=== PATIENT | female | born 2000 | race Caucasian/White ===

== ENCOUNTER 2020-07-05 08:14 | Outpatient (RCR) | payer MEDICAID, SELFPAY | END 2020-07-05 23:59 | LOC: IMMUN 08:14 | PROVIDERS: Visit Provider Family Medicine | DX: Z23 Encounter for immunization (principal) | CPT/HCPCS: 0011A; 0012A; 91301 ==

== ENCOUNTER 2021-01-07 01:05 | Emergency (ER) | payer MEDICAID, SELFPAY ==
[2021-01-07 01:07] VITALS: BP 137/80; PULSE 102; RESP 18; TEMP 36.4; O2SAT 100; BMI 39.9
[2021-01-07 01:11] VITALS: O2SAT 100
--- NOTE | 2021-01-07 01:24 | EKG12_ITS ---
Test Reason : DYSRHYTHMIA Blood Pressure : / mmHG Vent. Rate : 092 BPM Atrial Rate : 092 BPM P-R Int : 116 ms QRS Dur : 068 ms QT Int : 350 ms P-R-T Axes : 011 057 046 degrees QTc Int : 432 ms Normal sinus rhythm Normal ECG Confirmed by LUZMARIA OCONNOR, TIMMY ([id number]), editor map ADRIANA DUARTE ([id number]) on 01/08/2021 9:10:12 AM Referred By: MR Confirmed By:TIMMY DUTTA MD
--- NOTE | 2021-01-07 01:24 | RAD_ITS ---
STUDY: X-RAY CHEST REASON FOR EXAM: Female, 20 years old. Chest pain TECHNIQUE: PA and lateral views of the chest. COMPARISON: None. FINDINGS: The lungs are clear and expanded. There is no demonstrated pleural abnormality. Normal size heart. Normal mediastinum and drea. Normal visualized pulmonary arteries. Normal visualized aortic arch and descending thoracic aorta. Normal visualized thoracic spine. Normal visualized ribs, clavicles, and shoulders. There is no demonstrated abnormality of the visualized soft tissue structures of the upper abdomen. RAD/Chest PA and Lateral IMPRESSION: Normal x-ray examination of the chest. Electronically Signed: Karol Hamilton MD at 2:20 EDT Tel , Service support ,
--- NOTE | 2021-01-07 01:33 | ED.VIS.DYS ---
HPI History of Present Illness Chief Complaint: Shortness of Breath Narrative Narrative: Patient presenting for evaluation secondary to chest pain shortness of breath. Patient states that she has been dealing with somewhat of a respiratory illness over the course the last couple of days. She did test negative for coronavirus over the weekend. Patient reports that the night prior to going to bed she developed some chest pain shortness of breath. Some right-sided chest pain is worse with taking deep breath, as well as associated with shortness of breath. Patient denies that she currently has been dealing with any sort of fevers, she does have some mild rhinorrhea and a mild cough. She denies any nausea or vomiting or diarrhea. She denies any personal or family history of DVT or PE or any hemoptysis. Patient does use control and uses a vape device. Patient denies any cardiovascular risk factors. She initially thought that this was associated with her anxiety, but when it did not resolve she decided to come to the emergency department for further evaluation. [facility] Medical History Anxiety Depression Home Medications ibuprofen 200 mg tablet 200 mg PO Q6H PRN 01/05/21 [History Last Taken Unknown] norgestimate 0.25 mg-ethinyl estradiol 35 mcg tablet 1 tab PO DAILY 01/05/21 [History Last Taken Unknown] Allergy/AdvReac Type Severity Reaction Status Date / Time No Known Allergies Allergy Verified 01/07/21 01:11 Family History Other Cancer Heart disease Hypertension Social History Smoking Status: Current some day smoker tobacco type: e-cigarettes alcohol intake: never substance use type: does not use ROS ROS ED Constitutional Constitutional ED: Denies fever(s) Eyes Eyes: Denies change in vision ENT ENT ED: Denies rhinorrhea or sore throat Cardiovascular Cardiovascular: Reports chest pain Respiratory/Chest Respiratory/Chest: Reports dyspnea Gastrointestinal Gastrointestinal: Denies abdominal pain, nausea or vomiting Genitourinary Genitourinary ED: Denies dysuria Musculoskeletal Musculoskeletal: Denies myalgias or neck pain Integumentary Denies rash Neurologic Neurologic: Denies headache(s), paresthesias or weakness Psychiatric Psychiatric: Denies depression Endocrine Endocrinology: Denies polydipsia or polyuria Hematologic/Lymphatic Hematologic/Lymphatic: Denies easy bleeding or easy bruising Allergic/Immunologic Allergic/Immunologic ED: Denies urticaria EXAM Physical Exam Const Vital Signs: 01/07/21 01:07 01/07/21 01:11 01/07/21 01:35 Temperature 97.5 F L Temperature Source Temporal Pulse Rate 102 H Respiratory Rate 18 16 Respiratory Effort Normal Respiratory Pattern Normal Blood Pressure 137/80 H Blood Pressure Mean 99 Pulse Ox 100 100 Oxygen Delivery Method Room Air Room Air Room Air Positive well nourished and well developed General Appearance ED: well developed and NAD HEENT Reports moist mucous membranes normocephalic and atraumatic Eyes EOMs intact bilaterally Neck no lymphadenopathy, supple and no JVD Chest Wall inspection of chest normal and palpation of chest normal Resp normal respiratory effort and clear to auscultation bilaterally Resp Narrative: No evidence of vesicular rash on the chest, no reproducible tenderness to palpation Auscultation: Negative for rales, rhonchi or wheezes Cardio regular rhythm, S1 normal heart sound, S2 normal heart sound and no murmurs Rate: tachycardic Peripheral Pulses: radial pulses present and posterior tibial pulses present GI normal to inspection, nondistended, normoactive bowel sounds, soft to palpation and non-tender Extremity normal to inspection Extremity Narrative: Calves are supple no palpable cord General Extremety ED: Negative for edema or tenderness General Extremity: Negative for edema Neuro oriented x3 and no sensory deficits noted Sensorium / Orientation: awake and alert Psych mental status grossly normal Skin no rashes or lesions noted MDM MDM MDM Narrative Medical decision making narrative: Patient presented for evaluation secondary to chest pain. Patient does have risk factors for pulmonary embolism given the fact that she smokes and has a history of taking control IV was tablets laboratory studies were obtained. PA and lateral chest x-ray by my personal review is negative for acute process there is no evidence of infiltrate, no evidence of pneumothorax, normal cardiac silhouette. CBC demonstrates mild leukocytosis at 13,000 and no significant neutrophilic shift. Chemistry was unremarkable, troponin was negative and D-dimer was found to be negative. EKG was found to be unremarkable. Patient does have a history of a recent respiratory illness and has pain on inspiration this could be an element of some pleurisy. I do not feel that she is at risk for other serious etiology that requires admission or further observation at this time. She was recommended to use NSAIDs at home, she was given reassurance, the patient was discharged in stable condition. Lab Data Labs: Laboratory Results - last 24 hr 01/07/21 01/07/21 01/07/21 01:30 01:30 01:30 WBC 13.0 H RBC 4.30 Hgb 12.2 Hct 37.0 MCV 86.0 MCH 28.4 MCHC 33.0 RDW Std Deviation 37.2 RDW Coeff of Shruti 11.8 Plt Count 371 MPV 9.0 Immature Gran % (Auto) 0.400 Neut % (Auto) 66.4 Lymph % (Auto) 21.7 [place] % (Auto) 6.9 Eos % (Auto) 4.1 Baso % (Auto) 0.5 Absolute Neuts (auto) 8.7 H Absolute Lymphs (auto) 2.83 Nucleated RBC % 0 D-Dimer Quant (PE/DVT) <= 0.27 Sodium 138 Potassium 3.5 Chloride 105 Carbon Dioxide 28.0 Anion Gap 5 BUN 9 Creatinine 0.83 Estim Creat Clear Calc 91.81 Est GFR (MDRD) Af Amer 110 Est GFR (MDRD) Non-Af 91 BUN/Creatinine Ratio 10.8 Glucose 81 Calcium 8.8 Troponin I High Sens 4 Radiography Chest X-Ray - ED: 2 View, Read by ED Physician and Normal EKG Initial EKG: Attestation: I personally reviewed and interpreted this EKG as follows: (Normal sinus rhythm [address] segments, normal T waves, normal MS and QTc intervals. No evidence of WPW or Brugada morphology. There is slight evidence of possible q3, T3 changes but no evidence of S1.) Discharge Plan Triage Chief Complaint: Shortness of Breath ED Provider: James Rothman Dx/Rx/DC Orders Clinical Impression: Pleurisy Instructions: ED Pleurisy Prescriptions: No Action norgestimate-ethinyl estradiol [Sprintec (28)] 0.25-35 mg-mcg tablet 1 tab PO DAILY RF: 0 ibuprofen [Advil] 200 mg tablet 200 mg PO Q6H PRNRF: 0 Primary Care Provider: Care Physician,No Primary Referrals: Care Physician,No Primary [Primary Care Provider] - Activity Restrictions/Additional Instructions: Follow-up with your primary care physician as needed Disposition Disposition: Home, Self Care
[2021-01-07 01:35] VITALS: RESP 16; O2SAT 100
[2021-01-07 01:38] LABS: Absolute Lymphocyte Count 2.83 X10^3/uL (0.83-4.51); Absolute Neutrophil Count 8.7 X10^3/uL (2.0-7.7); Basophil# 0.07 X10^3/uL; Basophil% 0.5 % (0-1); Eosinophil# 0.53 X10^3/uL; Eosinophils% 4.1 % (0-5); Hemoglobin 12.2 g/dL (12.0-15.0); Lymphocyte # 2.83 X10^3/ul (0.83-4.51); Lymphocyte % 21.7 % (19-41); Mean Corpuscular Hgb 28.4 pg (27.0-32.0); Monocyte% 6.9 % (0-10); NRBC Flagged by Analyzer 0 % (0-5); Neutrophil # 8.66 X10^3/uL (2.7-7.7); Neutrophil % 66.4 % (47-70); Platelet Count 371 K/mm3 (150-450); RBC Distribution Width CV 11.8 % (11.6-14.6); RBC Distribution Width SD 37.2 fl (35.1-43.9)
[2021-01-07 01:58] LABS: Anion Gap 5 (5-15); BUN 9 mg/dL (7-18); BUN/Creat Ratio 10.8 RATIO (10-20); Calcium,Total 8.8 mg/dL (8.5-10.1); Chloride 105 mmol/L (98-107); Creatinine, Serum 0.83 mg/dL (0.55-1.02); EST Glomerular Filtration Rate 91 mL/min (>60); Est Glom Filt Rate - Afr Amer 110 mL/min (>60); Estimated Creatinine Clearance 91.81 ml/min; Glucose 81 mg/dL (74-106); Potassium 3.5 mmol/L (3.5-5.1); Sodium Level 138 mmol/L (136-145); Troponin-I HS 4 pg/mL (3.0-54.0)
[2021-01-07 02:11] LABS: D-Dimer Quantitative (DVT/PE) <= 0.27 FEU/ug/m (0.27-0.49)
[2021-01-07 02:27] VITALS: BP 125/82; PULSE 90; RESP 20; O2SAT 100
== END 2021-01-07 02:29 | disposition home or self-care (01) ==
PROVIDERS: Emergency Provider Emergency Medicine
DX: R09.1 Pleurisy (principal); F17.290 Nicotine dependence, other tobacco product, uncomplicated
CPT/HCPCS: 71046; 80048; 84484; 85025; 85379; 93005; 99284

== ENCOUNTER 2022-12-04 23:21 | Emergency (ER) | payer MEDICAID, SELFPAY ==
[2022-12-04 23:21] VITALS: BP 109/68; PULSE 88; RESP 15; TEMP 36.8; O2SAT 97; BMI 44.1
--- NOTE | 2022-12-05 00:18 | EDS_ITS ---
HPI History of Present Illness Chief Complaint: Nausea/Vomiting Informant: patient Narrative Narrative: Patient presents with nausea vomiting. Patient is approximately 6 weeks . She took a home test. She has also been seen in OB clinic and had blood testing done. She states about a week ago she started get some nausea and vomiting. But it was more intermittent. She could still get food and fluids in. She states the last 2 days it is just gotten worse. She really cannot keep fluids down. Not having diarrhea. Not fevers or chills. She has some epigastric discomfort with vomiting but no abdominal pain. No pelvic pain. No vaginal bleeding. No blood in the vomitus. No fevers or chills. She has no meds at home to help her. She has no history of having this. She is overall healthy. [facility] Medical History Anxiety Conjunctivitis, left eye Dental caries Depression Gingival and periodontal disease Home Medications ibuprofen 200 mg tablet (Advil) 200 mg PO Q6H PRN 01/05/21 [History Last Taken Unknown] norgestimate 0.25 mg-ethinyl estradiol 35 mcg tablet (Sprintec (28)) 1 tab PO DAILY 01/05/21 [History Last Taken Unknown] amoxicillin 875 mg-potassium clavulanate 125 mg tablet 1 tab PO BID #20 tabs 08/03/22 [Rx Last Taken Unknown] doxylamine 10 mg-pyridoxine (vit B6) 10 mg tablet,delayed release (Diclegis) 1 tab PO BID #20 tabs 12/05/22 [Rx Last Taken Unknown] ondansetron 4 mg disintegrating tablet 4 mg PO Q8H PRN PRN Nausea #10 tabs 12/05/22 [Rx Last Taken Unknown] Allergy/AdvReac Type Severity Reaction Status Date / Time No Known Allergies Allergy Verified 12/04/22 23:26 Family History Other Cancer Heart disease Hypertension Social History Smoking Status: Current some day smoker tobacco type: e-cigarettes alcohol intake: never substance use type: does not use ROS ROS ED ROS Narrative A complete review of systems was performed and is negative except as documented in the history of present illness. Some specific details below. Constitutional: No recent fevers or chills. No malaise. EYE: No visual complaints or pain. ENT: No difficulty swallowing. No swelling. No pain. No GERD. CV: No chest pain or palpitations. Respiratory: No dyspnea. No hemoptysis. No difficulty taking breaths. GI: Please see history of present illness. : No frequency dysuria or hematuria. No vaginal bleeding or discharge. No pelvic pains. She has no symptoms of UTI at all. Musculoskeletal: No recent trauma. No pains. Skin: No rash. Nondiaphoretic. Neuro: No weakness or numbness. Endocrine: No polyuria or polydipsia. EXAM Physical Exam Narrative Exam Narrative: CONSTITUTIONAL: Patient is nontoxic in appearance. The patient looks comfortable. HEENT: No notable trauma. Mucous membranes are a bit dry. EYES: No conjunctival injection. No proptosis. CARDIOVASCULAR: Regular rate. Regular rhythm. No notable murmur. No JVD. RESPIRATORY: No respiratory distress. Breathing is unlabored. No wheezes. No rhonchi. No rales. No pain with a deep breath. GASTROINTESTINAL: Not distended. Bowel sounds are normal. No tenderness. No guarding. No rebound. No palpable mass. No bruit. Overall her abdomen is quite benign. GENITOURINARY: No tenderness over the bladder or lower pelvic area. No CVA tenderness. MUSCULOSKELETAL: Atraumatic. No peripheral edema. NEUROLOGICAL: Patient is alert and appropriate. No focal deficit noted. SKIN: No noted rashes. No diaphoresis. PSYCHIATRIC: Patient is calm. Mood is appropriate. Const Vital Signs: 12/04/22 23:21 Temperature 98.3 F Temperature Source Temporal Pulse Rate 88 Respiratory Rate 15 Blood Pressure 109/68 Blood Pressure Mean 81 Pulse Ox 97 Oxygen Delivery Method Room Air MDM MDM MDM Narrative Medical decision making narrative: Patient CBC showed mild elevation of white count which is nonspecific. Patient's electrolytes were overall relatively normal other than mildly low potassium. This should self correct with diet. I am reluctant to treat this acutely now as oral potassium will oftentimes cause nausea and vomiting which is her primary issue. Her BUN and creatinine is well-preserved showing no signs of significant dehydration at this time. Patient was rechecked. She is doing better. The nausea is better but not gone. I explained that we may not be able to get all the symptoms gone but as long as she can tolerate some fluids we are doing well. We will write for a dose of Phenergan here and recheck her. Patient is doing better after Phenergan. She is passed her p.o. challenge. We will get her home. I will also start her on Diclegis just. I would have given that here but we did not have it available. Lab Data Attestation: I reviewed the patient's lab results. Labs: Laboratory Results - last 24 hr 12/05/22 01:09 WBC 11.7 H RBC 4.36 Hgb 12.1 Hct 36.6 L MCV 83.9 MCH 27.8 MCHC 33.1 RDW Std Deviation 36.6 RDW Coeff of Shruti 12.1 Plt Count 342 MPV 9.4 Immature Gran % (Auto) 0.300 Neut % (Auto) 71.5 H Lymph % (Auto) 18.9 L [place] % (Auto) 8.0 Eos % (Auto) 0.9 Baso % (Auto) 0.4 Absolute Neuts (auto) 8.4 H Absolute Lymphs (auto) 2.21 Nucleated RBC % 0 Sodium 136 Potassium 3.2 L Chloride 105 Carbon Dioxide 24.0 Anion Gap 7 BUN 6 L Creatinine 0.70 Estim Creat Clear Calc 102.51 Est GFR (MDRD) Af Amer 133 Est GFR (MDRD) Non-Af 110 BUN/Creatinine Ratio 8.6 L Glucose 105 Calcium 8.9 Discharge Plan Triage Chief Complaint: Nausea/Vomiting ED Provider: Reno Zuniga Dx/Rx/DC Orders Clinical Impression: Hyperemesis gravidarum Instructions: ED Hyperemesis Gravidarum Prescriptions: New doxylamine-pyridoxine (vit B6) [Diclegis] 10-10 mg tablet,delayed release (DR/EC) 1 tab PO BID Qty: 20 0RF ondansetron 4 mg tablet,disintegrating 4 mg PO Q8H PRN PRN (Reason: Nausea) Qty: 10 0RF No Action norgestimate-ethinyl estradiol [Sprintec (28)] 0.25-35 mg-mcg tablet 1 tab PO DAILY ibuprofen [Advil] 200 mg tablet 200 mg PO Q6H PRN amoxicillin-pot clavulanate 875-125 mg tablet 1 tab PO BID Qty: 20 0RF Primary Care Provider: Care Physician,No Primary Referrals: Renny Barfield MD [Med Staff - Active Staff] - 3-5 Days Care Physician,No Primary [Primary Care Provider] - Activity Restrictions/Additional Instructions: Follow-up with your dictating machine mechanic or Dr. Barfield as above. Disposition Disposition: Home, Self Care
[2022-12-05] MEDS: Ondansetron 4 MG/2 ML Vial IV (01:14)
[2022-12-05 01:19] LABS: Absolute Lymphocyte Count 2.21 X10^3/uL (0.83-4.51); Absolute Neutrophil Count 8.4 X10^3/uL (2.0-7.7); Basophil# 0.05 X10^3/uL; Basophil% 0.4 % (0-1); Eosinophils% 0.9 % (0-5); Hematocrit 36.6 % (37-47); Hemoglobin 12.1 g/dL (12.0-15.0); Lymphocyte # 2.21 X10^3/ul (0.83-4.51); Lymphocyte % 18.9 % (19-41); Mean Corp Hgb Conc 33.1 g/dL (32-36); Mean Corpuscular Hgb 27.8 pg (27.0-32.0); Mean Corpuscular Volume 83.9 fL (81-99); Mean Platelet Vol. 9.4 fl (6.2-12.0); Monocyte# 0.93 X10^3/uL; NRBC Flagged by Analyzer 0 % (0-5); Neutrophil # 8.37 X10^3/uL (2.7-7.7); Neutrophil % 71.5 % (47-70); Platelet Count 342 K/mm3 (150-450); RBC Distribution Width CV 12.1 % (11.6-14.6); RBC Distribution Width SD 36.6 fl (35.1-43.9); Red Blood Count 4.36 M/mm3 (4.2-5.4); White Blood Count 11.7 K/mm3 (4.4-11.0)
[2022-12-05 01:27] LABS: Anion Gap 7 (5-15); BUN 6 mg/dL (7-18); BUN/Creat Ratio 8.6 RATIO (10-20); Calcium,Total 8.9 mg/dL (8.5-10.1); Chloride 105 mmol/L (98-107); EST Glomerular Filtration Rate 110 mL/min (>60); Est Glom Filt Rate - Afr Amer 133 mL/min (>60); Estimated Creatinine Clearance 102.51 ml/min; Glucose 105 mg/dL (74-106); Potassium 3.2 mmol/L (3.5-5.1); Sodium Level 136 mmol/L (136-145)
[2022-12-05] MEDS: proMETHazine 25 MG/ML Syringe 12.5 MG IM (02:54)
== END 2022-12-05 04:13 | disposition home or self-care (01) ==
PROVIDERS: Emergency Provider Emergency Medicine; Visit Provider Emergency Medicine
DX: O21.0 Mild hyperemesis gravidarum (principal); O99.331 Smoking (tobacco) complicating pregnancy, first trimester; F17.290 Nicotine dependence, other tobacco product, uncomplicated; Z3A.01 Less than 8 weeks gestation of pregnancy
CPT/HCPCS: 80048; 85025; 96361; 96374; 99282; J7030; A4216; J2405